=== PATIENT | female | born 2000 | race Caucasian/White ===

== ENCOUNTER 2022-07-14 13:14 | Emergency (ER) | payer OTHER, SELFPAY ==
[2022-07-14] VITALS (7 sets, daily range): BP systolic 121–141; BP diastolic 50–70; PULSE 99–154; RESP 18–40; TEMP 37.1–39.5; O2SAT 90–95; BMI 38.9
--- NOTE | ~2022-07-14 | XR_ITS ---
EXAMINATION: XR CHEST CLINICAL INFORMATION: Cough and fever COMPARISON: None TECHNIQUE: 2 views of the chest were obtained. FINDINGS: Severe central peribronchial thickening and increased perihilar markings. No focal consolidative pneumonia. No pleural disease. Heart and mediastinal normal. XR/XR chest 2V IMPRESSION: Findings of severe bronchitis. No focal infiltrate.
[2022-07-14 15:38] LABS: Strep A Nucleic Acid Negative (Negative)
[2022-07-14 15:39] LABS: COVID-19 Test Negative (Negative); IDNOW Serial# 9DB6401D; Influenza A Negative (Negative); Influenza B2 Negative (Negative)
--- NOTE | 2022-07-14 19:44 | PC.NURSE ---
Pt. came back up to triage c/o SOB and increased WOB. RR 40, SPO2% 90% on RA, HR tachycardic to 154. This RN notified inpatient auditor Karen. Pt. was COVID swabbed and brought back to ED bed 3.
[2022-07-14 20:07] LABS: COVID-19 Test Negative (Negative); IDNOW Serial# 08D9AD1C
--- NOTE | 2022-07-14 20:18 | ED_ITS ---
HPI - General Adult General Chief complaint: General Medical Stated complaint: vomiting, cough Time Seen by Provider: 07/14/22 20:17 Source: patient Mode of arrival: ambulatory Limitations: language barrier (Sinhala speaking only, camp boss used) History of Present Illness HPI narrative: 22-year-old female who presents emergency department for evaluation fever, chest pain, cough, shortness of breath, nausea, vomiting and diarrhea x1 week. Patient states that she has had intermittent fevers for the past week. She is also complaining of a cough which is productive of thin white sputum. She states she is having chest pain in her mid sternum. This is a constant pain which is worse with coughing worse with breathing. The pain is a pressure-like pain which is 9/10 at its worst. She states she does feel short of breath and does have dyspnea on exertion. She has asthma is been using her inhaler twice a day with only minimal improvement of her symptoms. She states that she also has a headache. She points to the frontal aspect of her head when asked to localize the pain. States the headache is a constant pressure-like pain which is 10/10. She denied neck pain. She states that she is having pain in her abdomen as well, she points to her epigastric area when she describes his pain. She states this is squeezing pain which is intermittent. The patient has had constant nausea and vomiting. She states she has been vomiting 3 to 4 times a day. She has also had constant liquid stools with no blood in the vomit or the stools. She states she is feeling weak, dizzy, lightheaded. Patient states she has received 3 COVID-19 vaccinations. MD complaint: Chest pain Onset (ago): week(s) (1) Location: chest Radiation: non-radiation Severity: severe Severity scale (1-10): 9 Quality: other (Pressure) Pain Consistency: constant Relieving factors: none Exacerbating factors: other (Coughing, breathing) Associated symptoms: cough, fever/chills, headaches, malaise, nausea/vomiting and other (Diarrhea) Related Data Previous Rx's Medication Instructions Recorded albuterol sulfate 2.5 mg/3 mL 2.5 mg (3 mL) inhalation Q4-6H PRN 07/14/22 (0.083 %) solution for nebulization shortness of breath or wheezing #75 mL cefuroxime axetil 500 mg tablet 500 mg PO Q12H 5 days #10 tabs 07/14/22 ondansetron 4 mg disintegrating 4 mg PO Q6-8H PRN nausea and 07/14/22 tablet vomiting #14 tabs prednisone 20 mg tablet 60 mg PO DAILY 5 days #15 tabs 07/14/22 Allergies Allergy/AdvReac Type Severity Reaction Status Date / Time No Known Allergies Allergy Verified 07/14/22 15:10 Review of Systems Review of Systems: Yes all other systems are reviewed and are negative [facility] Past Medical History [facility] Narrative: Past medical history: Asthma. Social history: She denies tobacco, alcohol and drug use. Social History Social History Advance Directives: No Advance Directives Information Provided: No Physical Exam ED Vital Signs: Vital Signs - 24 hr 07/14/22 15:11 07/14/22 19:35 07/14/22 19:55 Temperature 98.8 F 103.1 F H 102.2 F H Pulse Rate 120 H 154 H 138 H Respiratory Rate 18 40 H 18 Blood Pressure 133/62 121/50 L 141/69 H Pulse Oximetry 95 90 L 94 Oxygen Delivery Method Room Air Room Air Room Air 07/14/22 20:15 07/14/22 21:24 07/14/22 22:25 Temperature 103.1 F H 102.6 F H 100.2 F Pulse Rate 135 H 118 H 113 H Respiratory Rate 33 H 24 H 21 H Blood Pressure 141/69 H 122/61 126/62 Pulse Oximetry 95 95 94 Oxygen Delivery Method Room Air Room Air Room Air BMI result Body Mass Index 38.9 Const General: cooperative and no acute distress Orientation/consciousness: oriented to person and oriented to place Limitations: no limitations [facility] Head: Yes normal to inspection, Yes normocephalic and Yes atraumatic Ears: external ears normal General nose exam: Normal external nose present Face and sinus: Yes normal facial exam Mouth: Normal oral and palatal mucosa present Throat: Yes posterior oropharynx normal Eyes General: appearance normal, both eyes and all related structures Pupils: Equal, round and reactive pupils present Neck Neck: Yes normal visual inspection, Yes no lymphadenopathy, Yes trachea midline and Yes supple Chest Chest palpation & inspection: normal inspection of the chest and normal palpation of entire chest wall Resp Effort & Inspection: normal respiratory effort and able to speak in complete sentences Auscultation: clear to auscultation bilaterally Cardio Rate: regular rate Rhythm: regular rhythm Heart sounds: S1 normal heart sound present, S2 normal heart sound present and no murmurs GI Inspection: Yes normal to inspection Palpation (GI): Soft to palpation, nontender and no guarding Auscultation: normal bowel sounds General: Yes no CVA tenderness Back/Spine/Pelvis Back: no CVA tenderness Skin General skin exam: no rashes or lesions noted Neuro General: oriented to person and oriented to place Cranial nerves: Yes CN's II-XII intact bilaterally and Yes Equal, round and reactive pupils present Cognition (Neuro): normal cognition Motor exam (neuro): 5/5 motor strength present throughout Extrem General: Yes normal to inspection Psych Appearance: grossly normal Speech and movement: Normal speech and movement present Affect: normal affect Attitude: cooperative Thought process: Normal thought process present Thought content: Normal thought content present Course Course Course Narrative: 22-year-old female who presents emergency department for evaluation of headache, chest pain, sore throat, cough, shortness of breath, fever x1 week. The patient does have a history asthma. Patient's vital signs reveal that she was tachycardic with a pulse of 120 and tachypneic with a respiratory rate of 21, she did have a fever of 100.2 degrees F. patient's lung exam was clear. [place] [address]. Patient's COVID-19, influenza and Streptococcus were negative. Chest x-ray is consistent with acute bronchitis with no evidence for pneumonia. Patient was treated with acetaminophen 975 mg orally, Toradol 15 mg IV, Reglan 10 mg IV and Benadryl 50 mg IV. She also received normal saline x1 L. patient did feel better after this treatment. Patient's presentation is consistent with acute bronchitis, given her asthma she will be treated with antibiotics. I ordered Ceftin 500 mg orally. She also ordered to get Solu-Medrol 125 mg IV. Patient will be discharged home with verbal and printed instructions. Medical Decision Making Medical Records Medical records reviewed: Yes I reviewed the patient's medical records. Lab Data Lab results reviewed: Yes I reviewed the patient's lab results. Result diagrams: 07/14/22 20:41 07/14/22 21:06 Labs: Lab Results 07/14/22 07/14/22 07/14/22 Range/Units 15:11 15:11 15:16 WBC (4.8-10.8) X10*3/uL RBC (4.20-5.50) X10*6/uL Hgb (12.0-16.0) g/dl Hct (37.0-47.0) % MCV (80.0-98.0) fL MCH (27.0-33.0) pg MCHC (31.0-35.0) g/dl RDW (11.0-16.0) % Plt Count (160-400) X10*3/uL MPV (9.4-12.3) fL Immature Gran % (Auto) (0.0-0.4) % Neut % (Auto) (45-73) % Lymph % (Auto) (20-40) % [place] % (Auto) (2-11) % Eos % (Auto) (0-4) % Baso % (Auto) (0-2) % Lymph # (Auto) (1.2-4.9) X10*3/uL [place] # (Auto) (0.1-1.2) X10*3/uL Eos # (Auto) (0.0-0.4) X10*3/uL Baso # (Auto) (0.0-0.2) X10*3/uL Abs Immat Gran (auto) (0.00-0.03) X10*3/uL Absolute Neuts (auto) (2.0-8.3) x10*3/uL Absolute Nucleated RBC (0.0-0.012) X10*3/uL Nucleated RBC % (auto) (0.0-0.2) /100WBC Sodium (135-145) mmol/L Potassium (3.3-5.1) mmol/L Chloride (96-108) mmol/L Carbon Dioxide (22-29) mmol/L Anion Gap (12-20) BUN (9-16) mg/dL Creatinine (0.5-1.4) mg/dL Estim Creat Clear Calc Estimated GFR Random Glucose (60-115) mg/dL Lactic Acid (0.5-2.0) mmol/L Calcium (8.4-10.2) mg/dL Total Bilirubin (0.0-1.0) mg/dL AST (5-31) U/L ALT (0-31) U/L Alkaline Phosphatase (39-117) U/L Total Protein (6.5-8.0) g/dL Albumin (3.5-5.0) g/dL Lipase (8-78) U/L COVID-19 (SOFIA) Negative (Negative) COVID-19 Clin Com See Note Influenza Type A (CHRISTIN) Negative (Negative) Influenza Type B (CHRISTIN) Negative (Negative) Influenza A & B Note See Note S. pyogenes GrpA CHRISTIN Negative (Negative) 07/14/22 07/14/22 07/14/22 Range/Units 19:44 20:41 20:41 WBC 19.3 H (4.8-10.8) X10*3/uL RBC 3.99 L (4.20-5.50) X10*6/uL Hgb 11.8 L (12.0-16.0) g/dl Hct 34.0 L (37.0-47.0) % MCV 85.2 (80.0-98.0) fL MCH 29.6 (27.0-33.0) pg MCHC 34.7 (31.0-35.0) g/dl RDW 13.8 (11.0-16.0) % Plt Count 330 (160-400) X10*3/uL MPV 10.8 (9.4-12.3) fL Immature Gran % (Auto) 0.6 H (0.0-0.4) % Neut % (Auto) 80.1 H (45-73) % Lymph % (Auto) 11.1 L (20-40) % [place] % (Auto) 7.7 (2-11) % Eos % (Auto) 0.1 (0-4) % Baso % (Auto) 0.4 (0-2) % Lymph # (Auto) 2.2 (1.2-4.9) X10*3/uL [place] # (Auto) 1.5 H (0.1-1.2) X10*3/uL Eos # (Auto) 0.0 (0.0-0.4) X10*3/uL Baso # (Auto) 0.1 (0.0-0.2) X10*3/uL Abs Immat Gran (auto) 0.12 H (0.00-0.03) X10*3/uL Absolute Neuts (auto) 15.5 H (2.0-8.3) x10*3/uL Absolute Nucleated RBC 0.000 (0.0-0.012) X10*3/uL Nucleated RBC % (auto) 0.0 (0.0-0.2) /100WBC Sodium (135-145) mmol/L Potassium (3.3-5.1) mmol/L Chloride (96-108) mmol/L Carbon Dioxide (22-29) mmol/L Anion Gap (12-20) BUN (9-16) mg/dL Creatinine (0.5-1.4) mg/dL Estim Creat Clear Calc Estimated GFR Random Glucose (60-115) mg/dL Lactic Acid 1.3 (0.5-2.0) mmol/L Calcium (8.4-10.2) mg/dL Total Bilirubin (0.0-1.0) mg/dL AST (5-31) U/L ALT (0-31) U/L Alkaline Phosphatase (39-117) U/L Total Protein (6.5-8.0) g/dL Albumin (3.5-5.0) g/dL Lipase (8-78) U/L COVID-19 (SOFIA) Negative (Negative) COVID-19 Clin Com See Note Influenza Type A (CHRISTIN) (Negative) Influenza Type B (CHRISTIN) (Negative) Influenza A & B Note S. pyogenes GrpA CHRISTIN (Negative) 07/14/22 Range/Units 21:06 WBC (4.8-10.8) X10*3/uL RBC (4.20-5.50) X10*6/uL Hgb (12.0-16.0) g/dl Hct (37.0-47.0) % MCV (80.0-98.0) fL MCH (27.0-33.0) pg MCHC (31.0-35.0) g/dl RDW (11.0-16.0) % Plt Count (160-400) X10*3/uL MPV (9.4-12.3) fL Immature Gran % (Auto) (0.0-0.4) % Neut % (Auto) (45-73) % Lymph % (Auto) (20-40) % [place] % (Auto) (2-11) % Eos % (Auto) (0-4) % Baso % (Auto) (0-2) % Lymph # (Auto) (1.2-4.9) X10*3/uL [place] # (Auto) (0.1-1.2) X10*3/uL Eos # (Auto) (0.0-0.4) X10*3/uL Baso # (Auto) (0.0-0.2) X10*3/uL Abs Immat Gran (auto) (0.00-0.03) X10*3/uL Absolute Neuts (auto) (2.0-8.3) x10*3/uL Absolute Nucleated RBC (0.0-0.012) X10*3/uL Nucleated RBC % (auto) (0.0-0.2) /100WBC Sodium 139 (135-145) mmol/L Potassium 3.2 L (3.3-5.1) mmol/L Chloride 104 (96-108) mmol/L Carbon Dioxide 21 L (22-29) mmol/L Anion Gap 17 (12-20) BUN 6 L (9-16) mg/dL Creatinine 0.78 (0.5-1.4) mg/dL Estim Creat Clear Calc 118.1 Estimated GFR > 60 Random Glucose 116 H (60-115) mg/dL Lactic Acid (0.5-2.0) mmol/L Calcium 8.4 (8.4-10.2) mg/dL Total Bilirubin 0.6 (0.0-1.0) mg/dL AST 16 (5-31) U/L ALT 10 (0-31) U/L Alkaline Phosphatase 108 (39-117) U/L Total Protein 7.2 (6.5-8.0) g/dL Albumin 3.9 (3.5-5.0) g/dL Lipase 15 (8-78) U/L COVID-19 (SOFIA) (Negative) COVID-19 Clin Com Influenza Type A (CHRISTIN) (Negative) Influenza Type B (CHRISTIN) (Negative) Influenza A & B Note S. pyogenes GrpA CHRISTIN (Negative) Imaging Data Chest x-ray: Radiologist's impression: FINDINGS: Severe central peribronchial thickening and increased perihilar markings. No focal consolidative pneumonia. No pleural disease. Heart and mediastinal normal. IMPRESSION: Findings of severe bronchitis. No focal infiltrate. Dictated By:Gilles Martinezigned By:<Electronically signed by Gilles Martinez MD in OV>07/14/222131 ECG Data Attestation: I personally reviewed and interpreted this ECG as follows: Interpretation: 2045: Sinus tachycardia with rate of 138, normal WA interval, QRS duration QTC interval, no ST segment elevation, no ST segment depression, no T-wave abnormalities, except for the sinus tachycardia this is a normal EKG. Discharge Plan Discharge Clinical Impression: Acute bronchitis Qualifiers: Bronchitis organism: other organism Qualified Code(s): J20.8 - Acute bronchitis due to other specified organisms Asthma Qualifiers: Asthma severity: moderate Fever Qualifiers: Encounter type: initial encounter Patient Disposition: Home, Self-Care Instructions: Acute Bronchitis (ED) Additional Instructions: Your white blood cell count was elevated. The rest of your blood work was normal. Your COVID-19, influenza and strep test were negative. Your chest x-ray did not reveal any pneumonia but is consistent with bronchitis (infection of your breathing tubes). Take prednisone 20 mg pills, 3 pills once a day for 5 days. While you are taking prednisone, do not take any NSAIDs (Motrin, Advil, ibuprofen, Aleve, naproxen). Take Tylenol (acetaminophen) 500 mg pills, 2 pills every 4 to 6 hours as needed for pain or fever. Take Zofran ODT 4 mg pills, 1 pill dissolved in your mouth every 8 hours as needed for nausea and vomiting. Take the antibiotic, Ceftin (cefuroxime) 500 mg twice a day for 5 days Use your albuterol inhaler and albuterol nebulizer for cough and shortness of breath as prescribed. Follow-up with your doctor in 2 days. Please return to the emergency department if your symptoms get worse or if you develop any symptoms that are concerning to you. Prescriptions: New albuterol sulfate 2.5 mg /3 mL (0.083 %) solution for nebulization 2.5 mg inhalation Q4-6H PRN (Reason: shortness of breath or wheezing) Qty: 75 0RF prednisone 20 mg tablet 60 mg PO DAILY 5 Days Qty: 15 0RF cefuroxime axetil 500 mg tablet 500 mg PO Q12H 5 Days Qty: 10 0RF ondansetron 4 mg tablet,disintegrating 4 mg PO Q6-8H PRN (Reason: nausea and vomiting) Qty: 14 0RF
--- NOTE | 2022-07-14 20:23 | ECG_ITS ---
Test Reason : TACHY Blood Pressure : / mmHG Vent. Rate : 138 BPM Atrial Rate : 138 BPM P-R Int : 114 ms QRS Dur : 080 ms QT Int : 298 ms P-R-T Axes : 057 -07 042 degrees QTc Int : 451 ms Sinus tachycardia Nonspecific T wave abnormality Inferior leads Abnormal ECG No previous ECGs available Referred By: Bebeto Benz Electronically Signed By:BRITTANY MORAN MD
[2022-07-14] MEDS: Acetaminophen 325 MG TABLET 975 MG PO (20:38)
[2022-07-14] MEDS: Ketorolac Tromethamine 15 MG/ML VIAL IVPUSH (20:39)
[2022-07-14] MEDS: 0.9 % Sodium Chloride 1,000 ML 999 ML IV (20:42)
[2022-07-14] MEDS: diphenhydrAMINE HCL 50 MG/ML VIAL IVPUSH (20:44)
[2022-07-14] MEDS: Metoclopramide HCl 10 MG/2 ML VIAL IVPUSH (20:44)
[2022-07-14 20:47] LABS: MANUAL DIFF FLAG NO
[2022-07-14 20:58] LABS: Basophils Absolute Auto 0.1 X10*3/uL (0.0-0.2); Basophils Percent Auto 0.4 % (0-2); Eosinophils Percent Auto 0.1 % (0-4); Hemoglobin 11.8 g/dl (12.0-16.0); Imm Gran Abs Auto 0.12 X10*3/uL (0.00-0.03); Imm Gran Pct Auto 0.6 % (0.0-0.4); Lactic Acid 1.3 mmol/L (0.5-2.0); Lymphocytes Absolute Auto 2.2 X10*3/uL (1.2-4.9); Lymphocytes Percent Auto 11.1 % (20-40); Mean Corpuscular HGB Conc 34.7 g/dl (31.0-35.0); Mean Corpuscular Hemoglobin 29.6 pg (27.0-33.0); Mean Corpuscular Volume 85.2 fL (80.0-98.0); Mean Platelet Volume 10.8 fL (9.4-12.3); Monocytes Absolute Auto 1.5 X10*3/uL (0.1-1.2); Monocytes Percent Auto 7.7 % (2-11); Neutrophils Absolute Auto 15.5 x10*3/uL (2.0-8.3); Neutrophils Percent Auto 80.1 % (45-73); Platelet Count 330 X10*3/uL (160-400); Red Blood Count 3.99 X10*6/uL (4.20-5.50); Red Cell Distribution Width 13.8 % (11.0-16.0); White Blood Count 19.3 X10*3/uL (4.8-10.8)
[2022-07-14 21:32] LABS: Alanine Aminotransferase 10 U/L (0-31); Albumin Level 3.9 g/dL (3.5-5.0); Alkaline Phosphatase 108 U/L (39-117); Anion Gap 17 (12-20); Aspartate Amino Transferase 16 U/L (5-31); Bilirubin Total 0.6 mg/dL (0.0-1.0); Blood Urea Nitrogen 6 mg/dL (9-16); Calcium 8.4 mg/dL (8.4-10.2); Carbon Dioxide 21 mmol/L (22-29); Chloride 104 mmol/L (96-108); Creatinine Clr Calc Pharmacy 118.1; Estimated Glomerular Filt Rate > 60; Glucose Random 116 mg/dL (60-115); Lipase 15 U/L (8-78); Potassium 3.2 mmol/L (3.3-5.1); Sodium 139 mmol/L (135-145); Total Protein 7.2 g/dL (6.5-8.0)
[2022-07-14] MEDS: methylPREDNISolone Sod Succ 125 MG/2 ML VIAL IVPUSH (23:34)
== END 2022-07-15 00:14 | disposition home or self-care (01) ==
PROVIDERS: Emergency Provider Emergency Medicine Emergency Medical Services
DX: J20.8 Acute bronchitis due to other specified organisms (principal); J45.909 Unspecified asthma, uncomplicated; R00.0 Tachycardia, unspecified; R05.9 Cough, unspecified; R07.89 Other chest pain; Z20.822 Contact with and (suspected) exposure to COVID-19; Z79.899 Other long term (current) drug therapy
CPT/HCPCS: 36415; 71046; 80053; 83605; 83690; 85025; 87040; 87502; 87635; 87651; 93005; 96361; 96374; 96375; 99284; J1200; J1885; J2765; J2930